=== PATIENT | female | born 1960 | race Caucasian/White ===

== ENCOUNTER 2016-11-08 15:23 | Emergency (ER) | payer BC ==
[~2016-11-08] VITALS: Ht 167.6 cm; Wt 74.8 kg
[2016-11-08 15:23] VITALS: BP 127/70
[~2016-11-08 15:23] MED LIST: /ADVA50050; /DULO30CA; BABY81CH; BUME1TAB; DARV100T; DIAB5TAB; FERR325T; INSULANT; LIPI10TA; LISI2.5T; SING10TA31; SYNT75TA; VITAMIN D50000 UNT
[2016-11-08] MEDS ORDERED: LEXA1TAB PO (15:49)
[2016-11-08] MEDS ORDERED: CALC600T10 PO (15:49)
[2016-11-08] MEDS ORDERED: GLYB25TA PO (15:49)
[2016-11-08] MEDS ORDERED: MULTCAP11 PO (15:49)
[2016-11-08] MEDS ORDERED: METF500T PO (15:49)
[2016-11-08] MEDS ORDERED: [UNRECOGNIZED DRUG - OTHER] SUBQ (15:49)
[2016-11-08] MEDS ORDERED: VITA100L PO (15:49)
[2016-11-08] MEDS ORDERED: NS 1,000 ML IV SCH (16:42)
[2016-11-08 16:57] LABS: BASO # 0.1 K/mm3 (0.0-0.2); BASO % 0.6 % (0.0-1.0); EOS # 0.1 K/mm3 (0.0-0.50); LARGE UNSTAINED CELL # 0.2 K/mm3 (0.0-0.4); LARGE UNSTAINED CELL % 2.4 % (0.0-4.0); LYMPH # 2.9 K/mm3 (1.5-4.5); LYMPH % 29.3 % (24.0-44.0); MEAN CORPUSCULAR HEMOGLOBIN 31.1 pg (27.0-33.0); MEAN CORPUSCULAR HGB CONC 32.8 g/dl (32.0-36.5); MEAN CORPUSCULAR VOLUME 94.7 fl (80.0-96.0); MONO # 0.3 K/mm3 (0.0-0.8); MONO % 3.5 % (0.0-5.0); NEUTROPHILS # 5.9 K/mm3 (1.8-7.7); NEUTROPHILS % 63.2 % (36.0-66.0); PLATELET COUNT, AUTOMATED 314 k/mm3 (150-450); RED CELL DISTRIBUTION WIDTH 13.6 % (11.5-14.5); WHITE BLOOD COUNT 9.3 K/mm3 (4.0-10.0)
[2016-11-08 17:58] LABS: ANION GAP 7 MEQ/L (8-16); BLOOD UREA NITROGEN 15 MG/DL (7-18); CALCIUM LEVEL 8.9 MG/DL (8.5-10.1); CARBON DIOXIDE LEVEL 25 MEQ/L (21-32); CHLORIDE LEVEL 99 MEQ/L (98-107); CREATININE FOR GFR 0.68 MG/DL (0.55-1.02); GLOMERULAR FILTRATION RATE > 60.0 (>51); GLUCOSE, FASTING 390 MG/DL (70-105); POTASSIUM SERUM 4.4 MEQ/L (3.5-5.1); SODIUM LEVEL 131 MEQ/L (136-145)
[2016-11-08] MEDS ORDERED: HumuLIN R (REGULAR) INSULIN (NovoLIN R) **100U/ML** PER UNIT IV STA (18:09)
--- NOTE | 2016-11-08 18:17 | REP ---
PORTABLE CHEST: AP portable view of the chest was performed. There is mild bibasilar interstitial fibrosis. There is no acute infiltrate or pulmonary edema. The heart is normal in size. The mediastinal silhouette is unchanged. IMPRESSION: Mild chronic changes. No acute infiltrate. Signed by Elio Mendoza MD 11/09/2016 09:41 A
== END 2016-11-08 21:02 | disposition home or self-care (01) ==
LOC: M ED 17:50
DX: E11.65 Type 2 diabetes mellitus with hyperglycemia (principal); K21.9 Gastro-esophageal reflux disease without esophagitis; E07.9 Disorder of thyroid, unspecified; E78.5 Hyperlipidemia, unspecified; M54.30 Sciatica, unspecified side; Z79.4 Long term (current) use of insulin; Z79.899 Other long term (current) drug therapy; Z88.1 Allergy status to other antibiotic agents

== ENCOUNTER → 2023-03-25 | Outpatient (CLI) | payer BC ==
[~2023-03-25] MED LIST changes: -/ADVA50050; -/DULO30CA; +ADVA1AER2; +CALC600T31 PO; +CYMB1CAP5; +GLYB2.5T7 PO; +LEXA1TAB PO; +METF500T13 PO; +MULTCAP11 PO; +VITA100L PO; +[UNRECOGNIZED DRUG - OTHER] SUBQ
== END ==
LOC: M WHC 07:05
PROVIDERS: ATTEND Physician Assistant Medical
DX: Z12.31 Encounter for screening mammogram for malignant neoplasm of breast (principal); N95.9 Unspecified menopausal and perimenopausal disorder

== ENCOUNTER → 2023-06-01 | Outpatient (REF) | payer BC ==
[2023-06-01 11:28] LABS: APPEARANCE, URINE CLEAR (CLEAR); BACTERIA, URINE AUTO NEGATIVE (NEGATIVE); BILIRUBIN, URINE AUTO NEGATIVE (NEGATIVE); BLOOD, URINE BLOOD NEGATIVE (NEGATIVE); COLOR, URINE YELLOW (YELLOW); GLUCOSE, URINE (UA) AUTO 3+ mg/dL (NEGATIVE); KETONE, URINE AUTO NEGATIVE (NEGATIVE); LEUKOCYTE ESTERASE, URINE AUTO NEGATIVE (NEGATIVE); MUCUS, URINE SMALL (NEGATIVE); NITRITE, URINE AUTO NEGATIVE (NEGATIVE); PROTEIN, URINE AUTO NEGATIVE (NEGATIVE); RBC, URINE AUTO 0 /HPF (0-3); SPECIFIC GRAVITY URINE AUTO 1.013 (1.002-1.035); SQUAMOUS EPITHELIAL CELL UR AU 0 /HPF (0-6); UROBILINOGEN, URINE AUTO 0.2 mg/dL (0.0-2.0); WBC, URINE AUTO 0 /HPF (0-3)
== END ==
LOC: M SMT 09:48
PROVIDERS: ATTEND Specialist
DX: N39.41 Urge incontinence (principal)

== ENCOUNTER → 2024-10-30 | Outpatient (CLI) | payer BC | LOC: M RAD 10:33 | PROVIDERS: ATTEND Physician Assistant Medical | DX: R60.0 Localized edema (principal) ==

== ENCOUNTER → 2024-11-08 | Outpatient (CLI) | payer BC | LOC: M PLARAD 14:57 | PROVIDERS: ATTEND Physician Assistant Medical | DX: G44.59 Other complicated headache syndrome (principal) ==